=== PATIENT | male | born 1940 | race Caucasian/White ===

== ENCOUNTER 2018-05-23 08:12 | Emergency (ER) | payer OTHER ==
[~2018-05-23] VITALS: Ht 170.2 cm; Wt 87.1 kg
[2018-05-23] MEDS ORDERED: ASA81 MG (08:51)
[2018-05-23] MEDS ORDERED: LIPITOR20 MG (08:51)
[2018-05-23] MEDS ORDERED: COZAAR50 MG (08:52)
== END 2018-05-23 11:11 | disposition home or self-care (01) ==
LOC: ER 08:12
DX: M25.562 Pain in left knee (principal)